=== PATIENT | female | born 1940 | race Caucasian/White ===

== ENCOUNTER 2017-05-11 21:42 | Emergency (ER) | payer MEDICARE, OTHER ==
[2017-05-11] MEDS ORDERED: HYDROmorphone 1 MG/ML Syringe IM ONE (22:25)
--- NOTE | 2017-05-11 22:30 | EDM.PDOC ---
ED HPI GENERAL MEDICAL PROBLEM - General Chief Complaint: Lower Extremity Injury/Pain Stated Complaint: L KNEE PAIN Time Seen by Provider: 05/11/17 22:20 Source of Information: Reports: Patient, Family, RN Notes Reviewed History Limitations: Reports: No Limitations - History of Present Illness INITIAL COMMENTS - FREE TEXT/NARRATIVE: 77-year-old female presents emergency department today complaint of left knee pain is been ongoing for the last couple weeks she has been evaluated by her primary care provider x-rays have been done x-rays were inconclusive she's been trying combination naproxen and Tylenol her biggest issue is the aching pain at night she does have a follow-up appointment with orthopedics the this month Left Knee Pain Score (Numeric/FACES): 9 - Related Data Allergies Allergy/AdvReac Type Severity Reaction Status Date / Time No Known Allergies Allergy Verified 08/26/13 07:11 Home Meds: Home Meds Cyanocobalamin (Vitamin B-12) [Cyanocobalamin Injection] 1,000 mcg IJ ASDIRECTED 05/11/17 [History] Hydrochlorothiazide 25 mg PO DAILY 05/11/17 [History] Levothyroxine [Synthroid] 50 mcg PO DAILY 05/11/17 [History] valACYclovir HCl [Valacyclovir] 1,000 mg PO ASDIRECTED PRN 05/11/17 [History] Past Medical History HEENT History: Reports: Impaired 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: - Infectious Disease History Infectious Disease History: Reports: Chicken Pox, Measles Social & Family History - Tobacco Use Smoking Status *Q: Never Smoker - Caffeine Use Caffeine Use: Reports: Coffee - Recreational Drug Use Recreational Drug Use: No Review of Systems - Review of Systems Review Of Systems: See Below Musculoskeletal: Reports: Joint Pain (Left knee pain) Skin: Reports: No Symptoms Neurological: Reports: No Symptoms ED EXAM, GENERAL - Physical Exam Exam: See Below Free Text/Narrative:: Examination left knee I don't appreciate any erythema there is no edema no specific joint line tenderness Sai's maneuver Gomez and valgus maneuvers are negative Course - Vital Signs Last Recorded V/S: Last Vital Signs Temp 96.4 F 05/11/17 22:06 Pulse 68 05/11/17 22:06 Resp 16 05/11/17 22:06 BP 152/90 H 05/11/17 22:06 Pulse Ox 97 05/11/17 22:06 - Orders/Labs/Meds Orders: Active Orders 24 hr Category Date Time Status HYDROmorphone [Dilaudid] Med 05/11/17 22:25 Once 1 mg IM ONETIME ONE Departure - Departure Time of Disposition: 22:28 Disposition: Home, Self-Care 01 Condition: Good Clinical Impression: Left knee pain Qualifiers: Chronicity: acute Qualified Code(s): M25.562 - Pain in left knee - Discharge Information Referrals: Meet Dodge MD [Primary Care Provider] - Additional Instructions: Continue to use ibuprofen as needed for baseline pain control, use hydrocodone for breakthrough pain, please keep your follow-up appointment with orthopedics - My Orders Last 24 Hours: My Active Orders 05/11/17 22:25 HYDROmorphone [Dilaudid] 1 mg IM ONETIME ONE - Assessment/Plan Last 24 Hours: My Active Orders 05/11/17 22:25 HYDROmorphone [Dilaudid] 1 mg IM ONETIME ONE Plan: Assessment Acuity = acute Site and laterality = left knee pain Etiology = unclear etiology Manifestations = none Location of injury = Home Lab values = none Plan She was given 1 mg Dilaudid IM 1 prescription written for hydrocodone 1 tablet by mouth 3 times a day when necessary 5/325 total #10 tablets keep appointment with orthopedic surgery Patient was in agreement with the plan all questions were answered, they were instructed to return to the emergency department or call for worsening symptoms. This note was dictated using [employer] voice recognition software please call with any questions.
== END 2017-05-11 23:01 | disposition home or self-care (01) ==
LOC: JP.ED 21:42
DX: M25.562 Pain in left knee (principal); Z79.899 Other long term (current) drug therapy
CPT/HCPCS: 96372; 99282; 99283; J1170

== ENCOUNTER 2017-05-13 10:53 | Emergency (ER) | payer MEDICARE, OTHER ==
[2017-05-13] MEDS ORDERED: Ketorolac 60 MG/2 ML SDV IM ONE (11:53)
--- NOTE | 2017-05-13 12:03 | EDM.PDOC ---
ED HPI GENERAL MEDICAL PROBLEM - General Chief Complaint: Lower Extremity Injury/Pain Stated Complaint: KNEE PAIN Time Seen by Provider: 05/13/17 11:20 Source of Information: Reports: Patient, Family History Limitations: Reports: No Limitations - History of Present Illness INITIAL COMMENTS - FREE TEXT/NARRATIVE: Yessica presents to the emergency room today for complaints of left knee pain for 10 days. She states she struck her left knee 10 days ago and now has continued and worsening pain. She reports the pain has been the worst at night, is throbbing and aching in nature. She denies significant pain with ambulation or activity, however it will start aching when she is up on her feet for awhile. She was in to see Dr. Foster, had an x-ray. Yessica presented to the ER for worsening of pain despite use of naproxen, topical gel, ice, heat and rest and was given hydrocodone for pain. Yessica states her left knee pain keeps her awake at night due to its throbbing. She has taken the hydrocodone, NSAID as directed, even trying an extra dose without relief. 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 Duration: Day(s): Location: Reports: Lower Extremity, Left - Related Data Allergies Allergy/AdvReac Type Severity Reaction Status Date / Time No Known Allergies Allergy Verified 08/26/13 07:11 Home Meds: Home Meds Cyanocobalamin (Vitamin B-12) [Cyanocobalamin Injection] 1,000 mcg IJ ASDIRECTED 05/11/17 [History] Hydrochlorothiazide 25 mg PO DAILY 05/11/17 [History] Levothyroxine [Synthroid] 50 mcg PO DAILY 05/11/17 [History] valACYclovir HCl [Valacyclovir] 1,000 mg PO ASDIRECTED PRN 05/11/17 [History] Hydrocortisone [Proctozone-Hc] 05/13/17 [History] Losartan [Cozaar] 05/13/17 [History] Metoprolol Tartrate [Metoprolol Tartrate] 05/13/17 [History] Naproxen [Naproxen] 05/13/17 [History] Past Medical History - Past Health History Medical/Surgical History: Denies Medical/Surgical History HEENT History: Reports: Impaired Vision 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: Reports: 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: - Infectious Disease History Infectious Disease History: Reports: Chicken Pox, Measles Social & Family History - Tobacco Use Smoking Status *Q: Never Smoker - Caffeine Use Caffeine Use: Reports: Coffee - Recreational Drug Use Recreational Drug Use: No Review of Systems - Review of Systems Review Of Systems: See Below Constitutional: Denies: Chills, Diaphoresis, Fever, Weakness Eyes: Reports: No Symptoms Ears: Reports: No Symptoms Nose: Reports: No Symptoms Mouth/Throat: Reports: No Symptoms Respiratory: Denies: Shortness of Breath, Wheezing, Pleuritic Chest Pain, Cough , Sputum, Hemoptysis Cardiovascular: Denies: Chest Pain, Edema, Irregular Heart Rate, Lightheadedness , Palpitations, Syncope GI/Abdominal: Reports: Nausea, Other (Nausea at times with use of hydrocodone. ) . Denies: Abdominal Pain, Decreased Appetite, Diarrhea, Hematemesis, Vomiting Genitourinary: Reports: No Symptoms Musculoskeletal: Reports: Joint Pain, Other (left lateral knee pain) Skin: Denies: Bruising, Pruritis, Rash, Erythema, Wound, Lesions Neurological: Reports: No Symptoms Psychiatric: Reports: No Symptoms ED EXAM, GENERAL - Physical Exam Exam: See Below Exam Limited By: No Limitations General Appearance: Alert, WD/WN, Mild Distress Eye Exam: Bilateral Eye: Normal Fundi, Normal Inspection, PERRL Ears: Normal External Exam, Normal Canal, Hearing Grossly Normal, Normal TMs Ear Exam: Bilateral Ear: Auricle Normal, Canal Normal, TM normal Nose: Normal Inspection, Normal Mucosa, No Blood Throat/Mouth: Normal Inspection, Normal Lips, Normal Teeth, Normal Gums, Normal Oropharynx, Normal Voice, No Airway Compromise Head: Atraumatic, Normocephalic Neck: Normal Inspection, Supple, Non-Tender, Full Range of Motion. No: Lymphadenopathy (R), Lymphadenopathy (L) Respiratory/Chest: No Respiratory Distress, Lungs Clear, Normal Breath Sounds, No Accessory Muscle Use, Chest Non-Tender Cardiovascular: Normal Peripheral Pulses, Regular Rate, Rhythm, No Edema, No Gallop, No Murmur, No Rub Peripheral Pulses: 2+: Radial (L), Radial (R), Dorsalis Pedis (L), Dorsalis Pedis (R) Back Exam: Normal Inspection, Full Range of Motion. No: CVA Tenderness (R), CVA Tenderness (L) Extremities: Non-Tender, No Pedal Edema, Normal Capillary Refill, Other (normal inspection, ROM to right lower extremity. Left knee pain with external rotation and flexion, pain with valgus, posterior drawer test and with quadriceps active test. Minimal to no pain with ambulation. ) Neurological: Alert, Oriented, CN II-XII Intact, Normal Cognition, Normal Gait, Normal Reflexes, No Motor/Sensory Deficits Psychiatric: Normal Affect, Normal Mood Skin Exam: Warm, Dry, Intact, Normal Color, No Rash Lymphatic: No Adenopathy Course - Vital Signs Last Recorded V/S: Last Vital Signs Temp 36.0 C 05/13/17 11: Pulse 55 L 05/13/17 11:17 Resp 14 05/13/17 11:17 BP 153/92 H 05/13/17 11:17 Pulse Ox 97 05/13/17 11:17 - Orders/Labs/Meds Meds: Medications Discontinued Medications Generic Name Dose Route Start Last Admin Trade Name Leni PRN Reason Stop Dose Admin Ketorolac Tromethamine 60 mg 05/13/17 11:53 05/13/17 12:13 Toradol IM 05/13/17 11:54 60 mg ONETIME ONE Administration - Re-Assessments/Exams Free Text/Narrative Re-Assessment/Exam: 05/13/17 12:25 Patient history of acute onset knee pain reviewed, clinic visit and most recent ER visit reviewed. With review of examination, significance of pain 9/10 at night with rest, it would be best for her to have further imaging. CT scan offered today, however patient would benefit from MRI. Yessica and her are both in agreement to complete MRI. We will set Yessica up for an outpatient MRI without contrast of the left knee this week. Outpatient order completed. She will be provided additional pain medication and follow up with Dr. Dodge this week for review of MRI and further management of pain. Review of NSAIDs, opiates, topicals, use of compression, heat and ice in detail with patient and her , all questions answered. Patient advised to use medications as directed and with food to minimize nausea and irritation to GI tract. Patient and her in agreement with plan. Departure - Departure Time of Disposition: 12:35 Disposition: Home, Self-Care 01 Condition: Fair Clinical Impression: Pain in lateral portion of left knee, Pain - Discharge Information Instructions: Knee Pain Referrals: Meet Dodge MD [Primary Care Provider] - Forms: ED Department Discharge Additional Instructions: You have been treated in the emergency room today for continued knee pain that has been much worse at night, limiting the ability to sleep. You have been given toradol 60mg IM in the emergency room today. Take your ibuprofen tonight at bedtime with oxycodone 5mg by mouth. Take ibuprofen 600-800mg by mouth three times a day for anti-inflammatory effects and pain (do not take naproxen with ibuprofen) Take oxycodone 5mg by mouth at bedtime. If the pain is severe you may take an additional 2.5 mg. Hard copy script provided for #20 tablets due to pending ORTHO referral for May 22. (Stop taking hydrocodone) Do not take oxycodone more then prescribed. Use elizabeth wraps for compression, hot packs, cold packs and elevation for pain assistance as well. It would be best for you to return for an outpatient MRI of the Left knee. Follow up with Dr. Dodge after you have completed the MRI of left knee. Further pain management and referrals will need to be done through Dr. Dodge. Return for worsening, issues or concerns. - Assessment/Plan Assessment:: Pain left knee Left lateral knee pain Plan: Patient has been treated in the emergency room today for continued knee pain that has been much worse at night, limiting the ability to sleep. She has been given toradol 60mg IM in the emergency room today. Take ibuprofen tonight at bedtime with oxycodone 5mg by mouth. Take ibuprofen 600-800mg by mouth three times a day for anti-inflammatory effects and pain (do not take naproxen with ibuprofen) Take oxycodone 5mg by mouth at bedtime. If the pain is severe she may take an additional 2.5 mg. Hard copy script provided for #20 tablets due to pending ORTHO referral for May 22. Warnings and use of opiate reviewed with patient and her in detail, both verbalized understanding. (Stop taking hydrocodone) Do not take oxycodone more then prescribed. Use elizabeth wraps for compression, hot packs, cold packs and elevation for pain assistance as well. It would be best for her to return for an outpatient MRI of the Left knee. An order for MRI placed. Follow up with Dr. Dodge after completed the MRI of left knee. Further pain management and referrals will need to be done through Dr. Dodge. Return for worsening, issues or concerns.
== END 2017-05-13 12:33 | disposition home or self-care (01) ==
LOC: JP.ED 10:53
DX: M25.562 Pain in left knee (principal); I10 Essential (primary) hypertension; Z79.899 Other long term (current) drug therapy
CPT/HCPCS: 96372; 99283; J1885

== ENCOUNTER 2020-08-02 18:58 | Emergency (ER) | payer MEDICARE, OTHER ==
--- NOTE | 2020-08-02 20:40 | EDM.PDOC ---
ED HPI GENERAL MEDICAL PROBLEM - General Chief Complaint: Cardiovascular Problem Stated Complaint: HIGH BLOOD PRESSURE Time Seen by Provider: 08/02/20 20:33 Source of Information: Reports: Patient, Family, RN Notes Reviewed History Limitations: Reports: No Limitations - History of Present Illness INITIAL COMMENTS - FREE TEXT/NARRATIVE: 80-year-old female presents emergency department with a complaint of blood pressure problems, she has known history of hypertension she has been taking her blood pressure medications at home however she is noticed her blood pressure has slowly started to creep up she had some systolics in the 190s by the time she presents the emergency department her blood pressures have come down and she is asymptomatic she does have follow-up appointment with her primary care on of this week - Related Data Allergies Allergy/AdvReac Type Severity Reaction Status Date / Time No Known Allergies Allergy Verified 08/02/20 20:13 Home Meds: Home Meds Cyanocobalamin (Vitamin B-12) [Cyanocobalamin Injection] 1,000 mcg IJ ASDIRECTED 05/11/17 [History] Levothyroxine [Synthroid] 50 mcg PO DAILY 05/11/17 [History] Metoprolol Tartrate 100 mg PO BID 05/13/17 [History] Losartan/Hydrochlorothiazide [Losartan-HCTZ 100-25 MG] 1 tab PO DAILY 08/02/20 [History] Spironolactone [Aldactone] 50 mg PO DAILY 08/02/20 [History] Past Medical History HEENT History: Reports: Cataract, Impaired Vision 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: Reports: 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: , Prolapsed Uterus Endocrine/Metabolic History: Reports: Hypothyroidism - Infectious Disease History Infectious Disease History: Reports: Chicken Pox, Measles, Mumps, Shingles - Past Surgical History HEENT Surgical History: Reports: Cataract Surgery Social & Family History - Tobacco Use Tobacco Use Status *Q: Never Tobacco User - Caffeine Use Caffeine Use: Reports: Coffee - Recreational Drug Use Recreational Drug Use: No ED ROS GENERAL - Review of Systems Review Of Systems: See Below Constitutional: Reports: No Symptoms Respiratory: Reports: No Symptoms Cardiovascular: Reports: No Symptoms GI/Abdominal: Reports: No Symptoms ED EXAM, GENERAL - Physical Exam Exam: See Below Exam Limited By: No Limitations General Appearance: Alert, WD/WN, No Apparent Distress Respiratory/Chest: No Respiratory Distress, Lungs Clear, Normal Breath Sounds, No Accessory Muscle Use, Chest Non-Tender Cardiovascular: Regular Rate, Rhythm, No Murmur Course - Vital Signs Last Recorded V/S: Last Vital Signs Temp 97.0 F 08/02/20 20:23 Pulse 51 L 08/02/20 20:23 Resp 15 08/02/20 20:23 BP 165/66 H 08/02/20 20:23 Pulse Ox 99 08/02/20 20:23 Departure - Departure Time of Disposition: 20:39 Disposition: Home, Self-Care 01 Condition: Fair Clinical Impression: Hypertension Qualifiers: Hypertension type: unspecified Qualified Code(s): I10 - Essential (primary) hypertension Referrals: Hill Boyd MD [Primary Care Provider] - Additional Instructions: Watch your salt intake, recommend the DASH diet, please keep your follow-up appointment with your primary care upcoming call return to the emergency department worsening of symptoms Sepsis Event Note (ED) - Evaluation Sepsis Screening Result: No Definite Risk - Focused Exam Vital Signs: Vital Signs Temp Pulse Resp BP Pulse Ox 08/02/20 20:23 97.0 F 51 L 15 165/66 H 99 08/02/20 20:22 97.0 F 51 L 15 165/66 H 99 - Assessment/Plan Plan: Assessment Acuity = chronic Site and laterality = hypertension Etiology = unknown Manifestations = none Location of injury = Home Lab values = none Plan Talk to her about the DASH diet she is going to keep her follow-up appointment with your primary care this week This note was dictated using [employer] voice recognition software please call with any questions on syntax or grammar.
== END 2020-08-02 20:53 | disposition home or self-care (01) ==
LOC: JP.ED 18:58
DX: I10 Essential (primary) hypertension (principal); E03.9 Hypothyroidism, unspecified; Z79.899 Other long term (current) drug therapy
CPT/HCPCS: 99282; 99283